=== PATIENT | male | born 1980 | race Hispanic/Latino ===

== ENCOUNTER 2022-03-22 07:47 | Emergency (ER) | payer SELFPAY ==
--- OUTSIDE RECORDS SUMMARY | 2022-03-22 07:52 | XMS REPORT | Continuity of Care Document ---
:[address] [facility] t Address [address] [place] [address] Care Team Providers Name Role Phone Pcp, Patient Does Not Have A Primary Care Physician [id number] Tiffanie Gonzalez DO Attending Clinician TIFFANIE GONZALEZ Attending Clinician Unavailable Doctor Unassigned, [place] Attending Clinician Unavailable Choco Sandhu DO Attending Clinician CHOCO SANDHU Attending Clinician Unavailable Payers Payer Name Policy Type Policy Number Effective Date Expiration Date S ource Problems Condition Condition Condition Status Onset Resolution Last Treating Co mments Source Name Details Category Date Date Treatment Clinician Date No known No known Disease Unive rs active active ity of problems problems [facility] Allergies, Adverse Reactions, Alerts Allergy Allergy Status Severity Reaction(s) Onset Inactive Treating Comm ents Source Name Type Date Date Clinician NO KNOWN Drug Active Univers ALLERGIE Class ity of [facility] Social History Social Habit Start Date Stop Date Quantity Comments Source Exposure to Not sure [facility] SARS-CoV-2 (event) Medica l Branch Sex Assigned At [birth year] [facility] 00:00:00 00:00:00 [facility] Smoking Status Start Date Stop Date Source Unknown if ever smoked [facility] Medications Ordered Filled Start Stop Current Ordering Indication Dosage Frequency Signature Comments Components Source Medication Medication Date Date Medication? Clinician (SIG) Name Name ondansetron 2020-0 2020- No 4mg 4 mg, Slow Univers (ZOFRAN 10-26 IV Push, ity of (PF)) 14:15: 13:11 ONCE, 1 [place] injection 4 00 :00 dose, On Medi eileen mg [place] 10/26/20 at 0915, ANTONIA morpHINE 2020-0 2020- No 4mg 4 mg, Slow Un akiko injection 4 10-26 IV Push, ity of mg 14:15: 13:11 ONCE, 1 [place] 00 :00 dose, On [facility] 10/26/20 at 0915, STAT NaCl 0.9% 2020- No 1000mL at 999 Uni vers (NS) bolus 10-26 mL/hr, ity of infusion 14:15: 14:20 1,000 mL, Jose Cruz as 1,000 mL 00 :00 [facility] ON[facility], 1 dose, On [place] 10/26/20 at 0915, STAT ondansetron 2020-2020- No 4mg 4 mg, Slow Univers (ZOFRAN 10-26 IV Push, ity of (PF)) 14:15: 13:11 ONCE, 1 [place] injection 4 00 :00 dose, On Medi eileen mg [facility] 10/26/20 at 0915, ANTONIA morpHINE 2020- No 4mg 4 mg, Slow Un akiko injection 4 10-26 IV Push, ity of mg 14:15: 13:11 ONCE, 1 [place] 00 :00 dose, On [facility] 10/26/20 at 0915, STAT NaCl 0.9% 2020- No 1000mL at 999 Uni vers (NS) bolus 10-26 mL/hr, ity of infusion 14:15: 14:20 1,000 mL, Jose Cruz as 1,000 mL 00 :00 IV [facility] ONCE, 1 dose, On [place] 10/26/20 at 0915, STAT iopamidol 2020-0 2020- No [id number] 100mL 100 mL, Univers (ISOVUE 10-26 Intravenou ity o f 370-500 mL) 13:20: 13:30 s, ONCE, 1 [place] injection 00 :00 dose, On Medica l 100 mL [facility] 10/26/20 at 0830, Routine iopamidol 2020-0 2020- No [id number] 100mL 100 mL, Univers (ISOVUE 10-26 Intravenou ity o f 370-500 mL) 13:20: 13:30 s, ONCE, 1 [place] injection 00 :00 dose, On Medica l 100 mL [place] 10/26/20 at 0830, Routine amoxicillin 2020-0 Yes [id number] 1{tbl} Take 1 Univers -clavulanat 9-19 tablet by ity of e 875-125 00:00: mouth [place] mg per 00 every 12 Medical tablet (twelve) Branch hours. dicyclomine 2020-0 Yes [id number] 20mg Take 1 Univers 20 mg 9-19 tablet by ity of tablet 00:00: mouth [place] 00 every 6 Medical (six) Branch hours as needed for Abdominal pain. amoxicillin 2020-0 Yes [id number] 1{tbl} Take 1 Univers -clavulanat 9-19 tablet by ity of e 875-125 00:00: mouth [place] mg per 00 every 12 Medical tablet (twelve) Branch hours. dicyclomine 2020-0 Yes [id number] 20mg Take 1 Univers 20 mg 9-19 tablet by ity of tablet 00:00: mouth [place] 00 every 6 Medical (six) Branch hours as needed for Abdominal pain. naproxen 2020-0 Yes [id number] 550mg Take 1 Un akiko sodium 9-24 tablet by ity of (ANAPROX 00:00: mouth 2 [place] DS) 550 mg 00 (two) Medical tablet times Branch daily with meals. methylPREDN 2020-0 Yes [id number] Take by Univers ISolone 9-24 mouth ity of (MEDROL, 00:00: SEE-INSTRU Jose Cruz as ANASTASIA,) 4 mg 00 CTIONS. Medica l tablets follow Branch package directions naproxen 2020-0 Yes [id number] 550mg Take 1 Un akiko sodium 9-24 tablet by ity of (ANAPROX 00:00: mouth 2 [place] DS) 550 mg 00 (two) Medical tablet times Branch daily with meals. naproxen 2020-0 Yes [id number] 550mg Take 1 Un akiko sodium 9-24 tablet by ity of (ANAPROX 00:00: mouth 2 [place] DS) 550 mg 00 (two) Medical tablet times Branch daily with meals. methylPREDN 2020-0 Yes [id number] Take by Univers ISolone 9-24 mouth ity of (MEDROL, 00:00: SEE-INSTRU Jose Cruz as ANASTASIA,) 4 mg 00 CTIONS. Medica l tablets follow Branch package directions methylPREDN 2020-0 Yes [id number] Take by Univers ISolone 9-24 mouth ity of (MEDROL, 00:00: SEE-INSTRU Jose Cruz as ANASTASIA,) 4 mg 00 CTIONS. Medica l tablets follow Branch package directions naproxen 2020-0 Yes [id number] 550mg Take 1 Un akiko sodium 9-24 tablet by ity of (ANAPROX 00:00: mouth 2 [place] DS) 550 mg 00 (two) Medical tablet times Branch daily with meals. methylPREDN 2020-0 Yes [id number] Take by Univers ISolone 9-24 mouth ity of (MEDROL, 00:00: SEE-INSTRU Jose Cruz as ANASTASIA,) 4 mg 00 CTIONS. Medica l tablets follow Branch package directions naproxen 2020-0 Yes [id number] 550mg Take 1 Un akiko sodium 9-24 tablet by ity of (ANAPROX 00:00: mouth 2 [place] DS) 550 mg 00 (two) Medical tablet times Branch daily with meals. methylPREDN 2020-0 Yes [id number] Take by Univers ISolone 9-24 mouth ity of (MEDROL, 00:00: SEE-INSTRU Jose Cruz as ANASTASIA,) 4 mg 00 CTIONS. Medica l tablets follow Branch package directions clindamycin 2020-0 2020- No [id number] 300mg Take 2 Univers 150 mg 9-24 10-02 capsules ity of capsule 00:00: 04:59 by mouth 4 Jose Cruz as 00 :00 (four) Medical times Branch daily for 7 days. Vital Signs Vital Name Observation Time Observation Value Comments Source Systolic blood 2020-10-26 14:00:00 119 mm[Hg] [facility] [place] [facility] Diastolic blood 2020-10-26 14:00:00 77 mm[Hg] [facility] Heart rate 2020-10-26 14:00:00 68 /min [facility] Respiratory rate 2020-10-26 14:00:00 16 /min [facility] Oxygen saturation in 2020-10-26 14:00:00 99 /min [facility] Arterial blood by [facility] Pulse oximetry Branch Body temperature 2020-10-26 12:59:00 36.67 Leta [facility] Body weight 2020-10-26 12:59:00 113.399 kg [facility] Systolic blood 2019-11-01 13:14:00 144 mm[Hg] Univer sity of [facility] Diastolic blood 2019-11-01 13:14:00 79 mm[Hg] Unive rsity [facility] Heart rate 2019-11-01 13:14:00 79 /min Universi [facility] Body temperature 2019-11-01 13:14:00 36.89 Leta [facility] Respiratory rate 2019-11-01 13:14:00 17 /min [facility] Body weight 2019-11-01 13:14:00 124.739 kg Universi [facility] Oxygen saturation in 2019-11-01 13:14:00 99 /min [facility] Arterial blood by [facility] Pulse oximetry [place] Procedures Procedure Date / Time Performed Performing Clinician Sour e CT ABDOMEN PELVIS W 2020-10-26 13:26:58 Tiffanie Gonzalez [facility] LIPASE 2020-10-26 13:10:00 Tiffanie Gonzalez [facility] TROPONIN I 2020-10-26 13:10:00 Tiffanie Gonzalez [facility] HEPATIC FUNCTION PANEL 2020-10-26 13:10:00 [id number] (ALB,T.PRO,BILI T,BU/BC,ALT,AST,ALK PHOS) BASIC METABOLIC PANEL 2020-10-26 13:10:00 Tiffanie Gonzalez [facility] (NA, K, CL, CO2, Medical Branch GLUCOSE, BUN, CREATININE, CA) CBC WITH DIFF 2020-10-26 13:10:00 Tiffanie Gonzalez [facility] URINALYSIS 2020-10-26 13:09:00 Tiffanie Gonzalez [facility] NOTICE OF PRIVACY 2020-10-26 12:52:54 Doctor Unassigned, No [facility] Name Medical Branch CONSENT/REFUSAL FOR 2020-10-26 12:52:41 Doctor Unassigned, No [facility] AND Name Medical Branch TREATMENT NOTICE OF PRIVACY 2019-11-01 13:00:39 Doctor Unassigned, No [facility] [place] [facility] CONSENT/REFUSAL FOR 2019-11-01 13:00:26 Doctor Unassigned, No [facility] DIAGNOSIS AND [facility] TREATMENT Encounters Start End Encounter Admission Attending Care Care Encounter Source Date/Time Date/Time Type Type Clinicians Facility Department ID 2020-10-26 2020-10-26 Emergency Lisa NHANUJ [id number] Univers 08:01:00 09:23:00 Tiffanie Al [id number] ity [facility] [id number] [facility] [id number] [address] 2020-10-26 2020-10-26 Emergency X LISA [facility] ERT [id number] Univers 08:01:00 08:01:00 TIFFANIE martinez [facility] 2020-10-26 2020-10-26 Orders Doctor NICKI [id number] Univers 00:00:00 00:00:00 Only Unassigned, ALICE [id number] ity of [place] [facility] [id number] Jose Cruz [id number] [place] [id number] Branch 2019-11-01 2019-11-01 Emergency Singer [facility] [id number] Univers 08:16:00 08:48:00 Choco Al [id number] i ty [facility] [id number] [facility] [id number] [address] 2019-11-01 2019-11-01 Emergency X SINGER [facility] ERT [id number] Univers 08:16:00 08:16:00 CHOCO michelle [facility] Results Test Description Test Time Test Comments Results Result Comments Source CBC WITH DIFF 2020-10-26 13:51:13 Test Item Value Reference Range Interpretation Comme nts WBC (test code = 6690-2) See_Comment [A utomated message] The system which ge nerated this result transmit joao reference range: 4.20 - 1 0.70 10*3/?L. The reference r gregorio was not used to interpr et this result as normal/abnor mal. RBC (test code = 789-8) See_Comment [Au tomated message] The system which [employer] nerated this result transmit joao reference range: 4.26 - 5 .52 10*6/?L. The reference r gregorio was not used to interpr et this result as normal/abnor mal. HGB (test code = 718-7) 13.7 g/dL 12.2-16.4 HCT (test code = 4544-3) 39.8 % 38.4-49.3 MCV (test code = 787-2) 82.7 fL 81.7-95.6 MCH (test code = 785-6) 28.5 pg 26.1-32.7 MCHC (test code = 786-4) 34.4 g/dL 31.2-35.0 RDW-SD (test code = 96834-5) 38.9 fL 38.5-51.6 RDW-CV (test code = 788-0) 12.9 % 12.1-15.4 PLT (test code = 777-3) See_Comment [Au tomated message] The system which [employer] nerated this result transmit joao reference range: 150 - 32 8 10*3/?L. The reference range was not used to interpret th is result as normal/abnormal . MPV (test code = 83766-8) 9.5 fL 9.8-13.0 L NRBC/100 WBC (test code = See_Comment [ Automated message] The 1320085908) system which [employer] nerated this result transmit joao reference range: 0.0 - 10 .0 /100 WBCs. The reference r gregorio was not used to interpr et this result as normal/abnor mal. NRBC x10^3 (test code = <0.01 See_Comment [Au tomated message] The 4566655488) system which [employer] nerated this result transmit joao reference range: 10*3/?L. The reference range was not u sed to interpret this result as normal/abnormal . GRAN MAT (NEUT) % (test code 37.7 % = 770-8) IMM GRAN % (test code = 1.00 % 8911502587) LYMPH % (test code = 736-9) 49.6 % MONO % (test code = 5905-5) 7.6 % EOS % (test code = 713-8) 3.7 % BASO % (test code = 706-2) 0.4 % GRAN MAT x10^3(ANC) (test 2.73 10*3/uL 1.99-6.95 code = 5606825954) IMM GRAN x10^3 (test code = 0.07 10*3/uL 0.00-0.06 H 7756084882) LYMPH x10^3 (test code = 3.59 10*3/uL 1.09-3.23 H 731-0) MONO x10^3 (test code = 0.55 10*3/uL 0.36-1.02 742-7) EOS x10^3 (test code = 0.27 10*3/uL 0.06-0.53 711-2) BASO x10^3 (test code = 0.03 10*3/uL 0.01-0.09 704-7) Lab Interpretation (test Abnormal code = 16391-9) [facility] WITH [id number] 13:51:13 Test Item Value Reference Range Interpretation Comments WBC (test code = See_Comment [Automated 6690-2) message] The sy stem which generated this result transmitted reference range : 4.20 - 10.70 10*3/?L. The reference range was not used to interpret this result as normal/abnormal . RBC (test code = See_Comment [Automated 059-8) message] The sy stem which generated this result transmitted reference range : 4.26 - 5.52 10*6/?L. The reference range was not used to interpret this result as normal/abnormal . HGB (test code = 13.7 g/dL 12.2-16.4 718-7) HCT (test code = 39.8 % 38.4-49.3 4544-3) MCV (test code = 82.7 fL 81.7-95.6 787-2) MCH (test code = 28.5 pg 26.1-32.7 785-6) MCHC (test code = 34.4 g/dL 31.2-35.0 786-4) RDW-SD (test code = 38.9 fL 38.5-51.6 08624-6) RDW-CV (test code = 12.9 % 12.1-15.4 788-0) PLT (test code = See_Comment [Automated 777-3) message] The sy stem which generated this result transmitted reference range : 150 - 328 10*3/ ?L. The reference r gregorio was not used to interpret this result as normal/abnormal . MPV (test code = 9.5 fL 9.8-13.0 L 17330-0) NRBC/100 WBC (test See_Comment [Automat ed code = 1223740323) message] The system which generated this result transmitted reference range : 0.0 - 10.0 /100 WBCs. The refer ence range was not u sed to interpret th is result as normal/abnormal . NRBC x10^3 (test code <0.01 See_Comment [Auto mated = 7718828388) message] The s ystem which generated this result transmitted reference range : 10*3/?L. The reference range was not used to interpret this result as normal/abnormal . GRAN MAT (NEUT) % 37.7 % (test code = 770-8) IMM GRAN % (test code 1.00 % = 7463197129) LYMPH % (test code = 49.6 % 736-9) MONO % (test code = 7.6 % 5905-5) EOS % (test code = 3.7 % 713-8) BASO % (test code = 0.4 % 706-2) GRAN MAT x10^3(ANC) 2.73 10*3/uL 1.99-6.95 (test code = 1646853059) IMM GRAN x10^3 (test 0.07 10*3/uL 0.00-0.06 H code = 4791048206) LYMPH x10^3 (test code 3.59 10*3/uL 1.09-3.23 H = 731-0) MONO x10^3 (test code 0.55 10*3/uL 0.36-1.02 = 742-7) EOS x10^3 (test code = 0.27 10*3/uL 0.06-0.53 711-2) BASO x10^3 (test code 0.03 10*3/uL 0.01-0.09 = 704-7) Lab Interpretation Abnormal (test code = 73606-3) [facility] [id number] 13:42:08 Test Item Value Reference Interpretation Comments Range TROPONIN I (test 0.001 ng/mL See_Comment [Automated code = 5940996408) message] The system which generated this result transmitted reference range : <=0.034. The reference range was not used to interpret this result as normal/abnormal . RADHA (test code = Reference (Normal) RADHA) Range (defined by the 99th percentile reference limit): <= 0.034 ng/mL Note: Cardiac troponin begins to rise 3-4 hours after the onset of ischemia. Repeat in 4-6 hours if the sample was drawn within 3-4 hours of the onset of the symptom and found normal. Diagnosis of myocardial injury is made with acute changes in cTn concentrations with at least one serial sample above the 99th percentile upper reference limit (URL), taken together with the patient's clinical presentation. Biotin has been reported to cause a negative bias, interpret results relative to patient's use of biotin. Lab Interpretation Normal (test code = 65516-8) [facility] [id number] 13:42:08 Test Item Value Reference Interpretation Comments Range TROPONIN I (test 0.001 ng/mL See_Comment [Automated code = 7903490311) message] The system which generated this result transmitted reference range : <=0.034. The reference range was not used to interpret this result as normal/abnormal . RADHA (test code = Reference (Normal) RADHA) Range (defined by the 99th percentile reference limit): <= 0.034 ng/mL Note: Cardiac troponin begins to rise 3-4 hours after the onset of ischemia. Repeat in 4-6 hours if the sample was drawn within 3-4 hours of the onset of the symptom and found normal. Diagnosis of myocardial injury is made with acute changes in cTn concentrations with at least one serial sample above the 99th percentile upper reference limit (URL), taken together with the patient's clinical presentation. Biotin has been reported to cause a negative bias, interpret results relative to patient's use of biotin. Lab Interpretation Normal (test code = 51439-9) [facility] METABOLIC PANEL (NA, K, CL, CO2, GLUCOSE, BUN, CREATININE, CA)2020-10-26 13:30:33 Test Item Value Reference Range Interpretation Comments NA (test code = 141 mmol/L 135-145 8868842059) K (test code = 3.9 mmol/L 3.5-5.0 1184015916) CL (test code = 107 mmol/L 98-108 6179438825) CO2 TOTAL (test code = 23 mmol/L 23-31 5832878756) AGAP (test code = 2-16 0381715705) BUN (test code = 9 mg/dL 7-23 8773183996) GLUCOSE (test code = 111 mg/dL 70-110 H 9408013106) CREATININE (test code = 0.56 mg/dL 0.60-1.25 L 9966348255) CALCIUM (test code = 9.4 mg/dL 8.6-10.6 3914991760) eGFR (test code = mL/min/1.73m2 2143662224) RADHA (test code = RADHA) Association of Glomerular Filtration Rate (GFR) and Staging of Kidney Disease* + --+ --+ ------+| GFR (mL/min/1.73 m2) ?| With Kidney Damage ?| ?Without Kidney Damage+ --------+ --------+ +| ?>90 ?| ?Stage one ?| ? Normal ?+ ---+ ---+ -------+| ?60-89 ?| ?Stage two ?| ? Decreased GFR ? + --+ --+ ------+| ?30-59 ?| ?Stage three ?| ? Stage three ? + --+ --+ ------+| ?15-29 ?| ?Stage four ? | ? Stage four ?+ ---+ ---+ -------+| ?<15 (or dialysis) ? ?| ?Stage five ? | ? Stage five ?+ ---+ ---+ -------+ *Each stage assumes the associated GFR level has been in effect for at least three months. ?Stages 1 to 5, with or without kidney disease, indicate chronic kidney disease. Notes: Determination of stages one and two (with eGFR >59mL/min/1.73 m2) requires estimation of kidney damage for at least three months as defined by structural or functional abnormalities of the kidney, manifested by either:Pathological abnormalities or Markers of kidney damage (including abnormalities in the composition of the blood or urine or abnormalities in imaging tests). Lab Interpretation Abnormal (test code = 42572-4) [facility] (ALB,T.PRO,BILI T,BU/BC,ALT,AST,ALK PHOS)2020-10-26 13:30:33 Test Item Value Reference Range Interpretation Comments TOTAL BILI (test code = 2691468062) 0.5 mg/dL 0.1-1.1 BILI UNCON (test code = 2796941624) 0.3 mg/dL 0.1-1.1 BILI CONJ (test code = 7834625673) 0.0 mg/dL 0.0-0.3 T PROTEIN (test code = 1549454190) 8.1 g/dL 6.3-8.2 ALBUMIN (test code = 5850989366) 4.5 g/dL 3.5-5.0 ALK PHOS (test code = 5356203361) 100 U/L 34-122 ALTv (test code = 1742-6) 45 U/L 5-50 AST(SGOT) (test code = 0372807260) 39 U/L 13-40 Lab Interpretation (test code = Normal 10708-3) [facility] (NA, K, CL, CO2, GLUCOSE, BUN, CREATININE, CA)2020-10-26 13:30:33 Test Item Value Reference Range Interpretation Comments NA (test code = 141 mmol/L 135-145 3208042033) K (test code = 3.9 mmol/L 3.5-5.0 6800178374) CL (test code = 107 mmol/L 98-108 6373324361) CO2 TOTAL (test code = 23 mmol/L 23-31 8339006386) AGAP (test code = 2-16 1796856205) BUN (test code = 9 mg/dL 7-23 6920431250) GLUCOSE (test code = 111 mg/dL 70-110 H 9381521799) CREATININE (test code = 0.56 mg/dL 0.60-1.25 L 8955925820) CALCIUM (test code = 9.4 mg/dL 8.6-10.6 7064027137) eGFR (test code = mL/min/1.73m2 4438854733) RADHA (test code = RADHA) Association of Glomerular Filtration Rate (GFR) and Staging of Kidney Disease* + --+ --+ ------+| GFR (mL/min/1.73 m2) ?| With Kidney Damage ?| ?Without Kidney Damage+ --------+ --------+ +| ?>90 ?| ?Stage one ?| ? Normal ?+ ---+ ---+ -------+| ?60-89 ?| ?Stage two ?| ? Decreased GFR ? + --+ --+ ------+| ?30-59 ?| ?Stage three ?| ? Stage three ? + --+ --+ ------+| ?15-29 ?| ?Stage four ? | ? Stage four ?+ ---+ ---+ -------+| ?<15 (or dialysis) ? ?| ?Stage five ? | ? Stage five ?+ ---+ ---+ -------+ *Each stage assumes the associated GFR level has been in effect for at least three months. ?Stages 1 to 5, with or without kidney disease, indicate chronic kidney disease. Notes: Determination of stages one and two (with eGFR >59mL/min/1.73 m2) requires estimation of kidney damage for at least three months as defined by structural or functional abnormalities of the kidney, manifested by either:Pathological abnormalities or Markers of kidney damage (including abnormalities in the composition of the blood or urine or abnormalities in imaging tests). Lab Interpretation Abnormal (test code = 69366-1) [facility] (49809[facility] (ALB,T.PRO,BILI T,BU/BC,ALT,AST,ALK PHOS)2020-10-26 13:30:33 Test Item Value Reference Range Interpretation Comments TOTAL BILI (test code = 6260694487) 0.5 mg/dL 0.1-1.1 BILI UNCON (test code = 0237251831) 0.3 mg/dL 0.1-1.1 BILI CONJ (test code = 3980477732) 0.0 mg/dL 0.0-0.3 T PROTEIN (test code = 4539183563) 8.1 g/dL 6.3-8.2 ALBUMIN (test code = 7596118586) 4.5 g/dL 3.5-5.0 ALK PHOS (test code = 8976213611) 100 U/L 34-122 ALTv (test code = 1742-6) 45 U/L 5-50 AST(SGOT) (test code = 1900398690) 39 U/L 13-40 Lab Interpretation (test code = Normal 46518-5) [facility] 13:30:28 Test Item Value Reference Range Interpretation Comments LIPASE (test code = 5480761648) 81 U/L 0-220 Lab Interpretation (test code = Normal 14115-6) [facility] 13:30:28 Test Item Value Reference Range Interpretation Comments LIPASE (test code = 5401475600) 81 U/L 0-220 Lab Interpretation (test code = Normal 51953-8) [facility]"
[2022-03-22 08:31] LABS: Absolute Lymphocytes (CBC) 2.8 K/uL (0.7-4.9); Hematocrit 42.2 % (39.6-49.0); Lymphocytes % 29.6 % (15.3-44.8); MCV 85.7 fL (80-100); MPV 7.8 fL (7.6-11.3); RBC Red Blood Cell Count 4.92 M/uL (4.33-5.43)
[2022-03-22 08:37] LABS: Protime INR 0.95
[2022-03-22 08:48] LABS: Albumin 3.5 g/dL (3.4-5.0); Bilirubin Total 0.2 mg/dL (0.2-1.0); Potassium 4.1 mmol/L (3.5-5.1); Protein, Total 7.5 g/dL (6.4-8.2)
--- NOTE | 2022-03-22 09:08 | RAD REPORT ---
EXAM DESCRIPTION: CTAbdomen Pelvis W Contrast - 03/22/2022 9:01 am CLINICAL HISTORY: Abdominal pain. rectal pain COMPARISON: No comparisons TECHNIQUE: Biphasic CT imaging of the abdomen and pelvis was performed with 100 ml non-ionic IV cont rast. All CT scans are performed using dose optimization technique as appropriate and may include automated exposure control or mA/KV adjustment according to patient size. FINDINGS: The lung bases are clear. The liver demonstrates diffuse fatty infiltration. Spleen, pancreas, adrenal glands are within normal limits. Bilateral caliceal renal stones are present without hydronephrosis. No bowel obstruction, free air, free fluid or abscess. The appendix is normal. No evidence of signi ficant lymphadenopathy. No suspicious bony findings. IMPRESSION: No acute intra-abdominal or pelvic finding. Bilateral nephrolithiasis without hydronephrosis.
--- NOTE | 2022-03-22 10:15 | EDPHYS ---
Physician Documentation [facility] Name: Gabo Morillo Age: 41 yrs Sex: Male : 1980 Arrival Date: 03/22/2022 Time: 07:49 Bed 7 Private MD: ED Physician Sarbjit Javier HPI: 03/22 08:20 This 41 yrs old Male presents to ER via Ambulatory with complaints of Rectal rn Bleeding. 08:20 The patient presents to the emergency department with bleeding from the rectum/anus, rn that is mild, pain in the rectal area. Onset: The symptoms/episode began/occurred 2 week(s) ago. Modifying factors: The symptoms are alleviated by pressure and toilet paper The symptoms are aggravated by bowel movement, sitting position. Associate signs and symptoms: Pertinent positives: lower GI bleeding. The patient has not experienced similar symptoms in the past. The patient has been recently seen by a physician:. Pt reports 2 weeks of rectal pain and bleeding, bleeding improving but not gone. No fever. No abd pain. NO diarrhea. Hurts with bowel movements. Seen in clinic, told nothing they could do and told to come here. . Historical: - Allergies: 07:59 No Known Allergies; ss - Home Meds: 07:59 None [Active]; ss - PMHx: 07:59 None; ss - PSHx: 07:59 None; ss - Immunization history:: Client reports receiving the 2nd dose of the Covid vaccine. - Social history:: Smoking status: Patient denies any tobacco usage or history of. - Family history:: not pertinent. - Hospitalizations: : No recent hospitalization is reported. ROS: 08:20 Constitutional: Negative for fever, chills, and weight loss, Neck: Negative for injury, rn pain, and swelling, Cardiovascular: Negative for chest pain, palpitations, and edema, Respiratory: Negative for shortness of breath, cough, wheezing, and pleuritic chest pain, Abdomen/GI: Negative for abdominal pain, nausea, vomiting, diarrhea, and constipation, + rectal pain MS/Extremity: Negative for injury and deformity, Skin: Negative for injury, rash, and discoloration, Neuro: Negative for headache, weakness, numbness, tingling, and seizure. Exam: 08:20 Constitutional: This is a well developed, well nourished patient who is awake, alert, rn and in no acute distress. Head/Face: Normocephalic, atraumatic. Cardiovascular: Regular rate and rhythm. No pulse deficits. Respiratory: No increased work of breathing, no retractions or nasal flaring. Abdomen/GI: soft, non-tender. + ulceration/open wound to 9 o'clock position perirectal with minimal bleeding, no purulence Skin: Warm, dry MS/ Extremity: Pulses equal, no cyanosis. Neuro: Awake and alert, GCS 15 Vital Signs: 07:58 BP 122 / 92; Pulse 87; Resp 16; Temp 98.2(O); Pulse Ox 100% on R/A; Weight 122.47 kg; ss Pain 2/10; 09:13 BP 117 / 74; Pulse 71; Resp 16; Pulse Ox 96% on R/A; Pain 6/10; ss MDM: 07:50 Patient medically screened. rn 10:12 Differential diagnosis: hemorrhoids, fissure, abscess, anal cancer. Data reviewed: rn vital signs, nurses notes, lab test result(s), radiologic studies, CT scan, and as a result, I will discharge patient. Counseling: I had a detailed discussion with the patient and/or guardian regarding: the historical points, exam findings, and any diagnostic results supporting the discharge/admit diagnosis, lab results, radiology results, the need for outpatient follow up, to return to the emergency department if symptoms worsen or persist or if there are any questions or concerns that arise at home. Response to treatment: the patient's symptoms have mildly improved after treatment, and as a result, I will discharge patient. Special discussion: I discussed with the patient/guardian in detail that at this point there is no indication for admission to the hospital. It is understood, however, that if the symptoms persist or worsen the patient needs to return immediately for re-evaluation. Based on the history and exam findings, there is no indication for further emergent testing or inpatient evaluation. I discussed with the patient/guardian the need to see the manager patient for further evaluation of the symptoms. I discussed with the patient/guardian the need to see the general surgeon for further evaluation of the symptoms. I discussed with the patient/guardian the need to see the primary care provider for further evaluation of the symptoms. ED course: Pt with normal blood work, normal h/h, stable/normal vitals, neg ct abdomen/pelvis. Explained to him the importance of f/u as could just be hemorrhoid with fissure but has to rule out anal cancer given appearance and ulceration. Understands needs close f/u and given return precautions. Also recommend sitz baths and stool softeners. . 03/22 08:10 Order name: CBC with Diff rn 03/22 08:10 Order name: CMP rn 03/22 08:10 Order name: Protime (+inr) rn 03/22 08:10 Order name: Ptt, Activated rn 03/22 08:32 Order name: CBC with Automated Diff; Complete Time: 09:57 EDMS 03/22 08:37 Order name: Protime (+INR); Complete Time: 09:57 EDMS 03/22 08:10 Order name: CT Abd/Pelvis - IV Contrast Only rn 03/22 08:10 Order name: IV Saline Lock; Complete Time: 08:25 rn 03/22 08:10 Order name: Labs collected and sent; Complete Time: 08:25 rn 03/22 08:37 Order name: PTT, Activated Partial Thromb; Complete Time: 09:57 EDMS 03/22 08:48 Order name: Comprehensive Metabolic Panel; Complete Time: 09:57 EDMS 03/22 09:08 Order name: CT; Complete Time: 09:57 EDMS Administered Medications: No medications were administered Disposition Summary: 03/22/22 10:14 Discharge Ordered Location: Home rn Problem: new rn Symptoms: have improved rn Condition: Stable rn Diagnosis - Perianal ulceration rn - Hemorrhoid, unspecified rn Followup: rn - With: Abdirahman Lynn MD - When: 2 - 3 days - Reason: Recheck today's complaints, Re-evaluation by your physician Discharge Instructions: - Discharge Summary Sheet rn - Anal Fissure, Adult rn - Hemorrhoids rn - Anal Cancer rn Forms: - Medication Reconciliation Form rn - Thank You Letter rn - Antibiotic rn lpn cna - Prescription Opioid Use rn Signatures: Dispatcher [employer] Sarbjit Flores MD MD rn Smirch, Shelby, RN RN ss
--- NOTE | 2022-03-22 10:15 | ER ---
Nurse's Notes [facility] Name: Gabo Morillo Age: 41 yrs Sex: Male : 1980 Arrival Date: 03/22/2022 Time: 07:49 Bed 7 Private MD: Diagnosis: Perianal ulceration;Hemorrhoid, unspecified Presentation: 03/22 07:58 Chief complaint: Patient states: rectal pain and bleeding that began 7 days ago. ss Coronavirus screen: Client denies travel out of the [place] in the last 14 days. Ebola Screen: Patient denies exposure to infectious person. Patient denies travel to an Ebola-affected area in the 21 days before illness onset. Initial Sepsis Screen: Does the patient meet any 2 criteria? No. Patient's initial sepsis screen is negative. Does the patient have a suspected source of infection? No. Patient's initial sepsis screen is negative. Risk Assessment: Do you want to hurt yourself or someone else? Patient reports no desire to harm self or others. Onset of symptoms was March 15, 2022. 07:58 Method Of Arrival: Ambulatory 07:58 Acuity: FAIZAN 3 ss Historical: - Allergies: 07:59 No Known Allergies; ss - Home Meds: 07:59 None [Active]; ss - PMHx: 07:59 None; ss - PSHx: 07:59 None; ss - Immunization history:: Client reports receiving the 2nd dose of the Covid vaccine. - Social history:: Smoking status: Patient denies any tobacco usage or history of. - Family history:: not pertinent. - Hospitalizations: : No recent hospitalization is reported. Screenin:26 [facility] ED Fall Risk Assessment (Adult) History of falling in the last 3 months, ss including since admission No falls in past 3 months (0 pts). Abuse screen: Denies threats or abuse. Denies injuries from another. Nutritional screening: No deficits noted. Tuberculosis screening: Never had TB. Assessment: 08:26 General: Appears in no apparent distress. comfortable, Behavior is calm, cooperative, ss Denies fever, feeling ill, fatigue, chills. Pain: Complains of pain in rectum Pain currently is 2 out of 10 on a pain scale. Quality of pain is described as tender, Pain began x1 week Is continuous. Neuro: Level of Consciousness is awake, alert, obeys commands, Oriented to person, place, time, situation, Sports Umpire are equal bilaterally Speech is normal, Facial symmetry appears normal. Respiratory: Airway is patent Respiratory effort is even, unlabored, Respiratory pattern is regular, symmetrical. GI: Reports rectal bleeding x 7 days. Is light bleeding today, but was worse over days previous Patient currently denies diarrhea, nausea, vomiting. : No signs and/or symptoms were reported regarding the genitourinary system. Derm: Skin is intact, is healthy with good turgor, Skin is dry, Skin is pink, warm \T\ dry. normal. Musculoskeletal: Range of motion: intact in all extremities. 08:53 Reassessment: PT to CT now VIA wheelchair with TODD Jefferson tech. ss 09:13 Reassessment: Pt back from CT. Awaiting results. Call light remains within reach. Pt ss updated on expected wait time. Has no complaints at this time. Vital Signs: 07:58 BP 122 / 92; Pulse 87; Resp 16; Temp 98.2(O); Pulse Ox 100% on R/A; Weight 122.47 kg; ss Pain 2/10; 09:13 BP 117 / 74; Pulse 71; Resp 16; Pulse Ox 96% on R/A; Pain 6/10; ss ED Course: 07:49 Patient arrived in ED. am2 07:50 Sarbjit Javier MD is Attending Physician. rn 07:58 Loretta Stacy, CRISTIAN is Primary Nurse. ss 07:59 Triage completed. ss 07:59 Arm band placed on right wrist. ss 08:25 CBC with Diff Sent. ss 08:26 Patient has correct armband on for positive identification. Bed in low position. Call ss light in reach. Pulse ox on. NIBP on. 08:26 CMP Sent. ss 08:26 Ptt, Activated Sent. ss 08:26 Protime (+inr) Sent. ss 08:26 Inserted saline lock: 20 gauge in right antecubital area, using aseptic technique. ss Blood collected. 10:14 Abdirahman Lynn MD is Referral Physician. rn Administered Medications: No medications were administered Medication: 08:26 VIS not applicable for this client. ss Outcome: 10:14 Discharge ordered by . rn 10:39 Patient left the ED. [id number] Signatures: Sarbjit Javier MD MD rn Smirch, Shelby, RN RN ss Faviola Santos RN RN jl7 Rosalba Darling am2
[2022-03-22 10:49] VITALS: TEMP 98.2
[2022-03-22 10:50] VITALS: BP 117/74; O2SAT 96
== END 2022-03-22 10:39 | disposition home or self-care (01) ==
LOC: ER 07:47
DX: K64.9 Unspecified hemorrhoids (principal); K62.6 Ulcer of anus and rectum
CPT/HCPCS: 36415; 74177; 80053; 85025; 85610; 85730; Q9967